=== PATIENT | male | born 2000 | race African-American/Black ===

== ENCOUNTER 2019-04-26 23:42 | Emergency (ER) | payer SELFPAY ==
[~2019-04-26] VITALS: Ht 180.3 cm; Wt 104.5 kg
[2019-04-26] MEDS ORDERED: [UNRECOGNIZED DRUG - OTHER] (23:49)
[2019-04-26] MEDS ORDERED: INSUH10VL SC (23:49)
[2019-04-26] MEDS ORDERED: METF-839 PO (23:53)
[2019-04-27 00:20] LABS: VENOUS BASE EXCESS 0.2 (-2.0-2.0); VENOUS O2 SATURATION 55.1 % (60.0-80.0); VENOUS PARTIAL PRESSURE CO2 57.7 mmHg (38.0-50.0); VENOUS PARTIAL PRESSURE O2 31.6 mmHg (30.0-50.0); VENOUS PH 7.304 UNITS (7.330-7.430); VENOUS STANDARD HCO3 23.5 MEQ/L; VENOUS TOTAL CO2 29.8 MEQ/L (24.0-28.0)
[2019-04-27 00:24] LABS: APPEARANCE, URINE CLEAR (CLEAR); BACTERIA, URINE AUTO NEGATIVE (NEGATIVE); BILIRUBIN, URINE AUTO NEGATIVE (NEGATIVE); BLOOD, URINE BLOOD NEGATIVE (NEGATIVE); COLOR, URINE STRAW (YELLOW); GLUCOSE, URINE (UA) AUTO 3+ mg/dL (NEGATIVE); KETONE, URINE AUTO TRACE mg/dL (NEGATIVE); LEUKOCYTE ESTERASE, URINE AUTO NEGATIVE (NEGATIVE); NITRITE, URINE AUTO NEGATIVE (NEGATIVE); PROTEIN, URINE AUTO NEGATIVE (NEGATIVE); RBC, URINE AUTO 1 /HPF (0-3); SPECIFIC GRAVITY URINE AUTO 1.035 (1.002-1.035); SQUAMOUS EPITHELIAL CELL UR AU 0 /HPF (0-6); UROBILINOGEN, URINE AUTO 0.2 mg/dL (0.0-2.0); WBC, URINE AUTO 0 /HPF (0-3)
[2019-04-27 00:34] LABS: HEMATOCRIT 44.3 % (42.0-52.0); HEMOGLOBIN 15.2 g/dl (13.5-17.5); MEAN CORPUSCULAR HEMOGLOBIN 29.1 pg (27.0-33.0); MEAN CORPUSCULAR HGB CONC 34.3 g/dl (32.0-36.5); MEAN CORPUSCULAR VOLUME 84.9 fl (80.0-96.0); PLATELET COUNT, AUTOMATED 337 10^3/uL (150-450); RED BLOOD COUNT 5.22 10^6/uL (4.30-6.10); WHITE BLOOD COUNT 6.4 10^3/uL (4.0-10.0)
[2019-04-27 00:40] LABS: ACETONE/KETONE 2.08 MG/DL (<2.81); ALBUMIN 4.4 GM/DL (3.2-5.2); ALT/SGPT 25 U/L (12-78); BILIRUBIN,TOTAL 0.4 MG/DL (0.2-1.0); BLOOD UREA NITROGEN 17 MG/DL (7-18); CALCIUM LEVEL 9.8 MG/DL (8.5-10.1); CARBON DIOXIDE LEVEL 28 MEQ/L (21-32); CHLORIDE LEVEL 102 MEQ/L (98-107); CREATININE FOR GFR 0.99 MG/DL (0.70-1.30); GLOMERULAR FILTRATION RATE > 60.0 (>60); GLUCOSE, FASTING 347 MG/DL (70-100); POTASSIUM SERUM 3.9 MEQ/L (3.5-5.1); SODIUM LEVEL 134 MEQ/L (136-145); TOTAL PROTEIN 7.6 GM/DL (6.4-8.2)
[2019-04-27] MEDS ORDERED: NOVOINJ3 SC (03:38)
[2019-04-27] MEDS ORDERED: ALCO1MED31 TP (03:38)
[2019-04-27] MEDS ORDERED: FORA1KIT XX (03:38)
[2019-04-27] MEDS ORDERED: BASA100I SC (03:38)
[2019-04-27 03:43] VITALS: BP 133/71
[2019-04-27] MEDS ORDERED: LEVEMIR (INSULIN DETEMIR) 1 UNITS/0.01ML SC ONE (03:45)
== END 2019-04-27 03:44 | disposition home or self-care (01) ==
LOC: EDSEX 23:42 → M ED 23:42
DX: E11.65 Type 2 diabetes mellitus with hyperglycemia (principal); Z79.4 Long term (current) use of insulin